=== PATIENT | female | born 1940 | race Caucasian/White ===

== ENCOUNTER 2016-07-11 | Outpatient (CLI) | payer MEDICARE | END 2016-07-11 04:15 | disposition critical access hospital (66) | CPT/HCPCS: A0425; A0427 ==

== ENCOUNTER 2016-07-11 04:49 | Emergency (ER) | payer MEDICARE | END 2016-07-11 06:27 | disposition home or self-care (01) | DX: E87.8 Other disorders of electrolyte and fluid balance, not elsewhere classified (principal); I48.91 Unspecified atrial fibrillation; E78.00 Pure hypercholesterolemia, unspecified; K21.9 Gastro-esophageal reflux disease without esophagitis; K44.9 Diaphragmatic hernia without obstruction or gangrene; Z86.73 Personal history of transient ischemic attack (TIA), and cerebral infarction without residual deficits; Z79.82 Long term (current) use of aspirin; Z79.899 Other long term (current) drug therapy; Z87.891 Personal history of nicotine dependence ==

== ENCOUNTER 2016-07-19 | Outpatient (CLI) | payer MEDICARE | END 2016-07-19 19:37 | disposition critical access hospital (66) | CPT/HCPCS: A0425; A0427 ==

== ENCOUNTER 2016-07-19 20:13 | Emergency (ER) | payer MEDICARE ==
[2016-07-19] MEDS ORDERED: ACETAMINOPHEN 325 MG TABLET PO STA (21:42)
[2016-07-19] MEDS ORDERED: ACETAMINOPHEN 325 MG TABLET PO ONE (21:48)
== END 2016-07-20 00:10 | disposition home or self-care (01) ==
DX: R51 Headache (principal); I48.91 Unspecified atrial fibrillation; Z79.899 Other long term (current) drug therapy; Z79.82 Long term (current) use of aspirin; Z87.891 Personal history of nicotine dependence
CPT/HCPCS: 70450; 99284; A9270

== ENCOUNTER 2016-08-04 10:29 | Outpatient (CLI) | payer MEDICARE ==
[2016-08-04] MEDS ORDERED: GADOBUTROL 7.5 MMOL/7.5 ML VIAL IVP ONE (12:02)
== END 2016-08-04 10:30 | disposition home or self-care (01) ==
DX: H53.16 Psychophysical visual disturbances (principal); Z86.73 Personal history of transient ischemic attack (TIA), and cerebral infarction without residual deficits; G31.84 Mild cognitive impairment of uncertain or unknown etiology; I48.0 Paroxysmal atrial fibrillation; G93.89 Other specified disorders of brain
CPT/HCPCS: 70553; A9585

== ENCOUNTER 2016-08-19 11:42 | Outpatient (CLI) | payer MEDICARE | END 2016-08-19 11:43 | disposition critical access hospital (66) | DX: M25.532 Pain in left wrist (principal); M21.932 Unspecified acquired deformity of left forearm; M25.432 Effusion, left wrist; W01.0XXA Fall on same level from slipping, tripping and stumbling without subsequent striking against object, initial encounter; Y92.002 Bathroom of unspecified non-institutional (private) residence as the place of occurrence of the external cause | CPT/HCPCS: A0425; A0429 ==

== ENCOUNTER 2016-08-19 11:45 | Emergency (ER) | payer MEDICARE ==
[2016-08-19] MEDS ORDERED: MIDAZOLAM 2 MG/2 ML VIAL IVP STA (13:18)
[2016-08-19] MEDS ORDERED: PROPOFOL 200 MG/20 ML VIAL IVP STA (13:18)
[2016-08-19] MEDS ORDERED: PROPOFOL 200 MG/20 ML VIAL IVP ONE (13:43)
[2016-08-19] MEDS ORDERED: MIDAZOLAM 2 MG/2 ML VIAL ONE (13:43)
== END 2016-08-19 15:25 | disposition home or self-care (01) ==
DX: S52.592A Other fractures of lower end of left radius, initial encounter for closed fracture (principal); S52.612A Displaced fracture of left ulna styloid process, initial encounter for closed fracture; W01.0XXA Fall on same level from slipping, tripping and stumbling without subsequent striking against object, initial encounter; Y93.89 Activity, other specified; Y92.003 Bedroom of unspecified non-institutional (private) residence as the place of occurrence of the external cause; Y99.8 Other external cause status; I48.0 Paroxysmal atrial fibrillation; Z86.73 Personal history of transient ischemic attack (TIA), and cerebral infarction without residual deficits; Z79.82 Long term (current) use of aspirin; Z87.891 Personal history of nicotine dependence

== ENCOUNTER 2016-08-25 16:30 | Outpatient (CLI) | payer MEDICARE | END 2016-08-25 16:31 | disposition home or self-care (01) | DX: Z53.9 Procedure and treatment not carried out, unspecified reason (principal) ==

== ENCOUNTER 2016-08-27 14:14 | Outpatient (CLI) | payer MEDICARE | END 2016-08-27 14:15 | disposition home or self-care (01) | DX: S52.532D Colles' fracture of left radius, subsequent encounter for closed fracture with routine healing (principal); W01.0XXA Fall on same level from slipping, tripping and stumbling without subsequent striking against object, initial encounter ==